=== PATIENT | male | born 1975 | race Caucasian/White ===

== ENCOUNTER 2017-05-30 03:00 | Emergency (ER) | payer SELFPAY ==
[2017-05-30 04:01] LABS: CALCIUM 9.4 mg/dL (8.5-10.1); CARBON DIOXIDE 27.1 mmol/L (21-32); CHLORIDE SERUM 102 mmol/L (98-107); CREATININE SERUM 1.1 mg/dL (0.7-1.3); GFR1 > 60 mL/min; GLUCOSE SERUM 140 mg/dL (74-106); POTASSIUM SERUM 3.8 mmol/L (3.5-5.1); SODIUM SERUM 138 mmol/L (136-145)
[2017-05-30 04:03] LABS: BASOPHIL % 1.3 % (0-2); PLATELET COUNT 277 x10^3mcL (130-400); RED CELL DISTRIBUTION WIDTH 11.9 % (11.5-14.5)
[2017-05-30 04:06] LABS: ALBUMIN 4.2 g/dL (3.4-5.0); ALKALINE PHOSPHATASE 88 U/L (46-116); ALT/SGPT 32 U/L (16-63); AST/SGOT 30 U/L (15-37); BILIRUBIN TOTAL 1.79 mg/dL (0.20-1.00); TOTAL PROTEIN, SERUM 9.3 g/dL (6.4-8.2)
[2017-05-30 06:00] LABS: AMPHETAMINE QUAL UR POSITIVE (NEG <=1000)
[2017-05-30 07:33] LABS: FREE T4 1.29 ng/dL (0.76-1.46); FREE THYROXINE INDEX 3.5 ug/dL (1.4-4.5); T4(THYROXINE) 10.1 ug/dL (4.7-13.3)
[2017-05-30 07:34] LABS: microscopic required? YES; urine erythrocyte TRACE (NEGATIVE)
[2017-05-30 07:40] LABS: CHOLESTEROL/HDL RATIO 3.8; PHOSPHOROUS 3.2 mg/dL (2.5-4.9)
[2017-05-30 07:56] LABS: T3 TOTAL 1.16 ng/mL
[2017-05-30 12:14] LABS: BASOPHIL % 0.5 % (0-2); PLATELET COUNT 261 x10^3mcL (130-400)
[2017-05-30 13:18] VITALS: BP 140/91
== END 2017-05-30 13:18 | disposition left against medical advice (07) ==
LOC: ED 03:00 → EDBD 03:00 → ED 13:18
PROVIDERS: Emergency Medicine; Family Medicine
DX: R07.9 Chest pain, unspecified (principal); R00.2 Palpitations; R41.0 Disorientation, unspecified; R00.0 Tachycardia, unspecified; Z88.0 Allergy status to penicillin
CPT/HCPCS: 83880; 84439; J7030; Q0177